=== PATIENT | male | born 1940 | race Two or more races ===

== ENCOUNTER 2020-12-25 14:46 | Emergency (ER) | payer OTHER ==
[~2020-12-25] VITALS: Ht 162.6 cm; Wt 76.7 kg
[2020-12-25] MEDS ORDERED: ACEBUTOLOL HCL200 MG (14:58)
[2020-12-25] MEDS ORDERED: CANDESARTAN-HC1 EACH (14:58)
[2020-12-25] MEDS ORDERED: DICLOFENAC POTA50 MG PO (18:08)
== END 2020-12-25 18:10 | disposition home or self-care (01) ==
LOC: ER 14:46
DX: S62.317A Displaced fracture of base of fifth metacarpal bone, left hand, initial encounter for closed fracture (principal); M12.542 Traumatic arthropathy, left hand; W18.09XA Striking against other object with subsequent fall, initial encounter; Y93.89 Activity, other specified; Y92.480 Sidewalk as the place of occurrence of the external cause; Y99.8 Other external cause status

== ENCOUNTER 2024-02-14 11:28 | Emergency (ER) | payer OTHER ==
[~2024-02-14] VITALS: Ht 162.6 cm; Wt 83.0 kg
[~2024-02-14 11:28] MED LIST: ACEBUTOLOL HCL200 MG; CANDESARTAN-HC1 EACH; DICLOFENAC POTA50 MG PO
[2024-02-14] MEDS ORDERED: CANDESARTAN CIL16 MG PO (12:12)
[2024-02-14] MEDS ORDERED: ATORVASTATIN CA80 MG PO (12:13)
[2024-02-14] MEDS ORDERED: LEVALBUTEROL HCL 1.25 MG/3 ML SOLUTION IH STA (13:46)
[2024-02-14] MEDS ORDERED: BUDESONIDE 0.5 MG/2 ML AMPUL.NEB IH STA (13:47)
[2024-02-14 14:48] LABS: HEMOGLOBIN 13.1 g/dL (13-16.00); MEAN CELL VOLUME 92.3 fL (80.0-100.00); MEAN CORPUSCULAR HEMOGLOBIN 31.9 pg (27.00-32.0); MEAN CORPUSCULAR HGB CONC 34.6 g/dl (32.0-36.0); PLATELET COUNT 226 K/uL (150-450); RED BLOOD COUNT 4.12 M/uL (4.00-6.00); RED CELL DISTRIBUTION WIDTH 13.4 % (11.5-14.5)
[2024-02-14] MEDS ORDERED: PAXLOVID 300-11 EAC1 PO (16:09)
== END 2024-02-14 16:20 | disposition home or self-care (01) ==
LOC: ER 11:29
PROVIDERS: Emergency Medicine
DX: U07.1 COVID-19 (principal); B34.9 Viral infection, unspecified; R53.81 Other malaise; I10 Essential (primary) hypertension

== ENCOUNTER 2025-06-16 11:54 | Inpatient (IN) | payer OTHER ==
[~2025-06-16] VITALS: Ht 162.6 cm; Wt 85.7 kg
[~2025-06-16 11:54] MED LIST changes: +ATORVASTATIN CA80 MG PO; +CANDESARTAN CIL16 MG PO; +PAXLOVID 300-11 EAC1 PO
--- NOTE | 2025-06-16 12:52 | NUR ---
PACIENTE ALERTA Y ORIENTADO X 3. REFIERE RU TOS CON FLEMA Y SENTIR CONGESTION EN AREA DEL PECHO HACEN 6 SOLORIO E INDICA ES SIMILAR A UN EPISODIO DE BRONQUITIS QUE PRESENTO A PRINCIPIOS DE ANO.
[2025-06-16] MEDS ORDERED: ECOTRIN81 MG (12:57)
[2025-06-16] MEDS ORDERED: ISOSORBIDE DINI30 MG (12:58)
[2025-06-16] MEDS ORDERED: ALBUTEROL SULFATE 3 ML/2.5 MG AMPUL.NEB IH SCH (13:15)
[2025-06-16] MEDS ORDERED: METHYLPREDNISOLONE SOD SUCC 125 MG VIAL IV ONE (13:15)
[2025-06-16] MEDS ORDERED: 0.9 % SODIUM CHLORIDE 1,000 ML IV SCH (13:15)
[2025-06-16] MEDS ORDERED: MAGNESIUM SULFATE IN WATER 50 ML IV ONE (13:15)
[2025-06-16] MEDS ORDERED: IPRATROPIUM BROMIDE 0.5 MG/2.5 ML AMPUL.NEB IH SCH (13:15)
[2025-06-16] MEDS ORDERED: METHYLPREDNISOLONE SOD SUCC 125 MG VIAL ONE (13:30)
[2025-06-16 14:02] LABS: BASO % 0.3 % (0.1-1.2); EOS # 0.30 (0.04-0.54); EOS % 5.0 % (0.7-7.0); LYMPH # 1.17 (1.18-3.74); LYMPH % 19.7 % (19.3-53.1); MEAN PLATELET VOLUME 8.70 fl (9.4-12.4); MONO # 0.61 (0.24-0.82); MONO % 10.3 % (4.7-12.5); NEUT # 3.84 (1.56-6.13); NEUT % 64.5 % (34.0-71.1); RED CELL DISTRIBUTION WIDTH 13.1 % (11.6-14.4)
--- NOTE | 2025-06-16 14:12 | NUR ---
PTE EVALUADA POR LA DRA SANDERS QUIEN ORDENA TRATAMEINTO LA CUAL SE EJECUTA . SE MANTIENE BAJO OBSERVACION.
[2025-06-16 14:15] LABS: ERYTHROCYTE SEDIMENTATION RATE 75 mm/hr (0-20)
[2025-06-16 14:27] LABS: ALT/SGPT 26.0 U/L (12-78); AST/SGOT 21.0 U/L (15-37); BILIRUBIN TOTAL 0.57 mg/dL (0.3-1.2); BUN CREA RATIO 14.0 (7.0-25.0); CREATININE SERUM 0.95 mg/dL (0.70-1.30); GFR 75.53; GLOBULINA 4.4 G/DL (2.4-3.5); GLUCOSE FASTING 103.0 mg/dL (65-100); OSMOLALITY SERUM 280.0 MOSM/KG (275-295)
[2025-06-16] MEDS ORDERED: IPRATROPIUM BROMIDE 0.5 MG/2.5 ML AMPUL.NEB IH ONE (16:38)
[2025-06-16] MEDS ORDERED: ALBUTEROL SULFATE 3 ML/2.5 MG AMPUL.NEB IH ONE (16:39)
[2025-06-16] MEDS ORDERED: ACETAMINOPHEN 325 MG TABLET PO PRN (18:45)
[2025-06-16 19:50] VITALS: BP 132/69; O2SAT 94
[2025-06-16 20:21] LABS: URINE APPEARANCE Clear; URINE BILIRRUBIN Negative (NEGATIVE); URINE BLOOD NHT; URINE COLOR Yellow; URINE GLUCOSE Negative (NEGATIVE); URINE KETONE Trace (NEGATIVE); URINE LEUKOCYTE Negative; URINE NITRATE Negative; URINE PROTEIN Negative (NEGATIVE); URINE UROBILINOGEN 0.2 E.U./dl
[2025-06-16 20:25] LABS: URINE RBC 17.7 uL (0.0-20.8)
[2025-06-16 20:32] LABS: URINE BACTERIA 0 uL (0.0-1933); URINE CAST 0.00 uL (0.0-1.40); URINE EPITHELIAL CELLS 0.3 uL (0.0-38.8); URINE WBC 0.7 uL (0.0-23.2)
[2025-06-16 20:33] LABS: COVID-19 AG NEGATIVE (NEGATIVE)
[2025-06-16 22:31] VITALS: O2SAT 96
[2025-06-17] VITALS (9 sets, daily range): BP systolic 155–192; BP diastolic 70–100; O2SAT 95–99
[2025-06-17] MEDS ORDERED: METHYLPREDNISOLONE SOD SUCC 40 MG VIAL IV SCH (01:00)
[2025-06-17] MEDS ORDERED: LEVALBUTEROL HCL 1.25 MG/3 ML SOLUTION IH SCH (01:00)
[2025-06-17] MEDS ORDERED: IPRATROPIUM BROMIDE 0.5 MG/2.5 ML AMPUL.NEB IH SCH (01:00)
[2025-06-17 07:13] LABS: BASO % 0.0 % (0.1-1.2); EOS # 0.00 (0.04-0.54); EOS % 0.0 % (0.7-7.0); LYMPH # 0.79 (1.18-3.74); LYMPH % 11.9 % (19.3-53.1); MEAN PLATELET VOLUME 9.00 fl (9.4-12.4); MONO # 0.11 (0.24-0.82); MONO % 1.7 % (4.7-12.5); NEUT # 5.71 (1.56-6.13); NEUT % 86.2 % (34.0-71.1); RED CELL DISTRIBUTION WIDTH 12.9 % (11.6-14.4)
[2025-06-17 07:23] LABS: ERYTHROCYTE SEDIMENTATION RATE 66 mm/hr (0-20)
[2025-06-17] MEDS ORDERED: ENALAPRILAT DIHYDRATE 1.25 MG/ML VIAL IV PRN (07:30)
[2025-06-17] MEDS ORDERED: AZITHROMYCIN 500 MG VIAL IV ONE (07:38)
[2025-06-17 07:46] LABS: INR 1.0
[2025-06-17 07:53] LABS: BUN CREA RATIO 17.0 (7.0-25.0); CREATININE SERUM 0.81 mg/dL (0.70-1.30); GFR 90.78; GLUCOSE FASTING 163.0 mg/dL (65-100); OSMOLALITY SERUM 282.0 MOSM/KG (275-295)
[2025-06-17] MEDS ORDERED: ASPIRIN 81 MG TABLET.EC PO SCH (09:00)
[2025-06-17] MEDS ORDERED: CANDESARTAN CILEXETIL 32 MG TABLET PO SCH (09:00)
[2025-06-17] MEDS ORDERED: ISOSORBIDE MONONITRATE 30 MG TABLET PO SCH (09:00)
[2025-06-17] MEDS ORDERED: AZITHROMYCIN 500 MG VIAL IV SCH (09:00)
[2025-06-17] MEDS ORDERED: ATORVASTATIN CALCIUM 40 MG TABLET PO SCH (09:00)
[2025-06-17] MEDS ORDERED: CANDESARTAN CILEXETIL 16 MG TABLET PO SCH ×2 (09:00)
[2025-06-17] MEDS ORDERED: PANTOPRAZOLE SODIUM 40 MG in 0.9 % SODIUM CHLORIDE 8 ML IV PUSH SCH (09:00)
[2025-06-17] MEDS ORDERED: CEFTRIAXONE SODIUM 2,000 MG in 0.9 % SODIUM CHLORIDE 100 ML IV SCH (09:00)
[2025-06-17] MEDS ORDERED: IPRATROPIUM/ALBUTEROL SULFATE 3 ML AMPUL.NEB IH SCH (10:42)
[2025-06-17] MEDS ORDERED: BENZONATATE 100 MG CAPSULE PO SCH (10:43)
[2025-06-18] VITALS (9 sets, daily range): BP systolic 121–143; BP diastolic 65–83; O2SAT 92–100
[2025-06-18] MEDS ORDERED: AZITHROMYCIN 500 MG VIAL IV ONE (06:30)
[2025-06-18 08:45] LABS: BASO % 0.1 % (0.1-1.2); EOS # 0.04 (0.04-0.54); EOS % 0.3 % (0.7-7.0); LYMPH # 1.51 (1.18-3.74); LYMPH % 11.1 % (19.3-53.1); MEAN PLATELET VOLUME 9.10 fl (9.4-12.4); MONO # 0.79 (0.24-0.82); MONO % 5.8 % (4.7-12.5); NEUT # 11.17 (1.56-6.13); NEUT % 82.1 % (34.0-71.1); RED CELL DISTRIBUTION WIDTH 13.3 % (11.6-14.4)
[2025-06-18] MEDS ORDERED: PATIENTS OWN MEDICATION (MEDICAMENTO EN PHA) PO SCH (09:00)
[2025-06-18 09:29] LABS: ALT/SGPT 24.0 U/L (12-78); AST/SGOT 16.0 U/L (15-37); BILIRUBIN TOTAL 0.23 mg/dL (0.3-1.2); BUN CREA RATIO 23.0 (7.0-25.0); CREATININE SERUM 0.98 mg/dL (0.70-1.30); GFR 72.87; GLOBULINA 3.6 G/DL (2.4-3.5); GLUCOSE FASTING 124.0 mg/dL (65-100); LDH 167.0 U/L (87-241); OSMOLALITY SERUM 288.0 MOSM/KG (275-295)
[2025-06-18] MEDS ORDERED: SODIUM CHLORIDE FOR INHALATION 1 VIAL.NEB IH SCH (21:00)
[2025-06-19] VITALS (8 sets, daily range): BP systolic 129–180; BP diastolic 64–83; O2SAT 90–98
[2025-06-19] MEDS ORDERED: METHYLPREDNISOLONE SOD SUCC 40 MG VIAL IV SCH (05:00)
[2025-06-19] MEDS ORDERED: AZITHROMYCIN 500 MG VIAL IV ONE (06:07)
[2025-06-19] MEDS ORDERED: METOPROLOL SUCCINATE 100 MG TAB.SR.24H PO SCH (09:00)
[2025-06-19] MEDS ORDERED: PANTOPRAZOLE SODIUM 40 MG TABLET.DR PO SCH (09:00)
[2025-06-20 00:30] VITALS: BP 146/80; O2SAT 98
[2025-06-20 01:40] VITALS: O2SAT 94
[2025-06-20 05:48] VITALS: O2SAT 87
[2025-06-20] MEDS ORDERED: AZITHROMYCIN 500 MG VIAL IV ONE (06:06)
[2025-06-20] MEDS ORDERED: LEVALBUTER0.63 MG/3 IH (08:08)
[2025-06-20] MEDS ORDERED: TOPROL XL100 M1 PO (08:08)
[2025-06-20] MEDS ORDERED: CEFDINIR300 MG PO (08:08)
[2025-06-20] MEDS ORDERED: BUDESONIDE0.5 MG/2 M IH (08:08)
[2025-06-20] MEDS ORDERED: AZITHROMYCIN500 MG PO (08:08)
[2025-06-20] MEDS ORDERED: INTESTINEX680 M1 PO (08:08)
[2025-06-20 08:36] VITALS: BP 180/96; O2SAT 96
[2025-06-20 09:02] VITALS: O2SAT 94
== END 2025-06-20 13:14 | disposition home or self-care (01) | DRG 206 ==
LOC: ER 11:55 → SEC-K 19:56 → SURH 19:56 → SURG 20:47 → SURH 21:12
PROVIDERS: General Practice; Internal Medicine Infectious Disease; ADMIT Internal Medicine; ATTEND Internal Medicine
PROC: B246ZZZ Ultrasonography of Right and Left Heart (ICD-10-PCS; 2025-06-16)
PROC: 4A12X4Z Monitoring of Cardiac Electrical Activity, External Approach (ICD-10-PCS; 2025-06-16)
PROC: BB24ZZZ Computerized Tomography (CT Scan) of Bilateral Lungs (ICD-10-PCS; principal; 2025-06-17)
PROC: 3E0F7GC Introduction of Other Therapeutic Substance into Respiratory Tract, Via Natural or Artificial Opening (ICD-10-PCS; 2025-06-17)
DX: J22 Unspecified acute lower respiratory infection (principal); I25.810 Atherosclerosis of coronary artery bypass graft(s) without angina pectoris; J45.901 Unspecified asthma with (acute) exacerbation; I11.9 Hypertensive heart disease without heart failure; Z95.1 Presence of aortocoronary bypass graft

== ENCOUNTER → 2025-07-05 | Emergency (ER) | payer OTHER ==
[~2025-07-05] VITALS: Ht 162.6 cm; Wt 86.2 kg
[~2025-07-05] MED LIST changes: +AZITHROMYCIN500 MG PO; +BUDESONIDE0.5 MG/2 M IH; +CEFDINIR300 MG PO; +ECOTRIN81 MG; +INTESTINEX680 M1 PO; +ISOSORBIDE DINI30 MG; +LEVALBUTER0.63 MG/3 IH; +TOPROL XL100 M1 PO
[2025-07-05 17:48] LABS: BASO % 0.4 % (0.1-1.2); EOS # 0.11 (0.04-0.54); EOS % 1.5 % (0.7-7.0); LYMPH # 1.43 (1.18-3.74); LYMPH % 19.0 % (19.3-53.1); MEAN PLATELET VOLUME 9.40 fl (9.4-12.4); MONO # 0.45 (0.24-0.82); MONO % 6.0 % (4.7-12.5); NEUT # 5.48 (1.56-6.13); NEUT % 72.6 % (34.0-71.1); RED CELL DISTRIBUTION WIDTH 13.2 % (11.6-14.4)
[2025-07-05 18:18] LABS: INR 0.99
[2025-07-05 18:24] LABS: ALT/SGPT 30.0 U/L (12-78); AST/SGOT 24.0 U/L (15-37); BILIRUBIN TOTAL 0.33 mg/dL (0.3-1.2); BUN CREA RATIO 17.0 (7.0-25.0); CREATININE SERUM 1.04 mg/dL (0.70-1.30); GFR 68.04; GLOBULINA 3.6 G/DL (2.4-3.5); GLUCOSE FASTING 99.0 mg/dL (65-100); OSMOLALITY SERUM 283.0 MOSM/KG (275-295)
[2025-07-05 19:00] LABS: URINE APPEARANCE Clear; URINE BILIRRUBIN Negative (NEGATIVE); URINE BLOOD Negative; URINE COLOR Yellow; URINE GLUCOSE Negative (NEGATIVE); URINE KETONE Negative (NEGATIVE); URINE LEUKOCYTE Negative; URINE NITRATE Negative; URINE PROTEIN Negative (NEGATIVE); URINE UROBILINOGEN 0.2 E.U./dl
[2025-07-05 19:03] LABS: URINE BACTERIA 10.7 uL (0.0-1933); URINE WBC 3.0 uL (0.0-23.2)
[2025-07-05 19:40] LABS: URINE CAST 0.14 uL (0.0-1.40); URINE EPITHELIAL CELLS 1.0 uL (0.0-38.8); URINE RBC 1.4 uL (0.0-20.8)
== END | disposition designated cancer center or children's hospital (05) ==
LOC: ER 16:34
PROVIDERS: Preventive Medicine Public Health & General Preventive Medicine
DX: I63.89 Other cerebral infarction (principal); I25.2 Old myocardial infarction; I10 Essential (primary) hypertension; Z95.1 Presence of aortocoronary bypass graft; K21.9 Gastro-esophageal reflux disease without esophagitis; E78.49 Other hyperlipidemia